=== PATIENT | female | born 1995 | race Caucasian/White ===

== ENCOUNTER 2017-09-07 21:21 | Outpatient (CLI) | payer OTHER ==
[~2017-09-07] VITALS: Ht 152.4 cm; Wt 73.8 kg
[~2017-09-07 21:21] MED LIST: FERR240T9 PO; FOLI0.8C PO; PREN1TAB79 PO
[2017-09-07] MEDS ORDERED: LACTATED RINGER'S 1,000 ML IV SCH (21:34)
[2017-09-07] MEDS ORDERED: ONDANSETRON 4 MG INJ IV STA (21:34)
[2017-09-07 21:36] VITALS: Ht 152.4 cm; Wt 73.8 kg
[2017-09-07] MEDS ORDERED: ONDANSETRON 4 MG INJ ONE (21:45)
[2017-09-07 22:27] LABS: BASOPHILS % 0.2 % (0.0-2.0); EOSINOPHILS # 0.2 10^3/ul (0.0-0.5); HEMATOCRIT 34.9 % (37.0-47.0); HEMOGLOBIN 11.4 g/dl (12.0-16.0); MEAN CORPUSCULAR HEMOGLOBIN 28.9 pg (29.0-33.0); MEAN CORPUSCULAR HGB CONC 32.7 g/dl (32.0-37.0); MEAN CORPUSCULAR VOLUME 88.4 fl (82.0-101.0); MEAN PLATELET VOLUME 9.8 fl (7.4-10.4); MONOCYTE # 0.6 10^3/ul (0.3-0.9); MONOCYTES % 5.2 % (0.0-11.0); NEUTROPHIL # 6.6 10^3/ul (1.6-7.5); NEUTROPHILS % 63.2 % (39.0-77.0); PLATELET COUNT 369 10^3/UL (140-415); RED BLOOD COUNT 3.95 10^6/ul (4.20-5.40); RED CELL DISTRIBUTION WIDTH 13.9 % (11.5-14.5); WHITE BLOOD COUNT 10.5 10^3/ul (4.8-10.8)
[2017-09-07 22:32] LABS: ADD UMIC NO; UR ASCORBIC ACID NEGATIVE (NEGATIVE); UR BACTERIA FEW /HPF (NONE SEEN); UR BILIRUBIN (Dip) NEGATIVE (NEGATIVE); UR BLOOD (Dip) NEGATIVE (NEGATIVE); UR CLARITY SLIGHTLY CLOUDY (CLEAR); UR COLOR YELLOW (YELLOW); UR GLUCOSE (Dip) NEGATIVE (NEGATIVE); UR KETONES (Dip) NEGATIVE (NEGATIVE); UR LEUKOCYTE ESTERASE (Dip) NEGATIVE Leu/ul (NEGATIVE); UR NITRITE (Dip) NEGATIVE (NEGATIVE); UR RBC 1 /HPF (0-5); UR SQUAMOUS EPITHELIAL CELL FEW /HPF (FEW); UR TOTAL PROTEIN (Dip) NEGATIVE (NEGATIVE); UR UROBILINOGEN (Dip) NEGATIVE (NEGATIVE)
[2017-09-07 22:45] LABS: ALBUMIN 3.3 g/dl (3.3-4.9); ALBUMIN/GLOBULIN RATIO 0.97; CALCIUM 8.4 mg/dl (8.4-10.2); CREATININE 0.51 mg/dl (0.44-1.00); POTASSIUM 3.8 mmol/L (3.5-5.1); TOTAL PROTEIN 6.7 g/dl (6.1-8.1)
--- NOTE | 2017-09-08 00:02 | PN ---
Triage Information Date/Time September 07, 2017. Reason for visit: Nausea/vomiting/diarrhea Weeks of Gestation 21w /Para 3/2 Diabetes: none Hypertention: none Additional information Pt had sx's for 3 hours prior to admission. Denies fevers/chills. Pt was in [facility] and just returned so has not had care yet. POBHx: x 1. x 1. PMHx: none. PSHx: x 1. Objective BP 96/59 T= 98.1 Heart Rate: 150's Contractions: None Exam Deferred. Results/Medications Result Diagram: 09/07/17214909/[id number]/172149 Results 24 hrs Laboratory Tests Test 09/07/17 21:05 09/07/17 21:50 Urine Color YELLOW Urine Clarity SLIGHTLY CLOUDY A Urine pH 5.0 Urine Specific [place] 1.010 Urine Ketones NEGATIVE Urine Nitrite NEGATIVE Urine Bilirubin NEGATIVE Urine Urobilinogen NEGATIVE Urine Leukocyte Esterase NEGATIVE Urine Microscopic RBC 1 Urine Microscopic WBC 3 Urine Squamous Epithelial Cells FEW Urine Bacteria FEW A Urine Hemoglobin NEGATIVE Urine Glucose NEGATIVE Urine Total Protein NEGATIVE White Blood Count 10.5 # Red Blood Count 3.95 L Hemoglobin 11.4 L Hematocrit 34.9 L Mean Corpuscular Volume 88.4 Mean Corpuscular Hemoglobin 28.9 L Mean Corpuscular Hemoglobin Concent 32.7 Red Cell Distribution Width 13.9 Platelet Count 369 Mean Platelet Volume 9.8 Neutrophils % 63.2 Lymphocytes % 29.0 Monocytes % 5.2 Eosinophils % 2.0 Basophils % 0.2 Nucleated Red Blood Cells % 0.0 Neutrophils # 6.6 Lymphocytes # 3.0 H Monocytes # 0.6 Eosinophils # 0.2 Basophils # 0.0 Nucleated Red Blood Cells # 0.0 Sodium Level 137 Potassium Level 3.8 Chloride Level 109 Carbon Dioxide Level 19 L Anion Gap 13 Blood Urea Nitrogen 10 Creatinine 0.51 Glucose Level 96 Calcium Level 8.4 Total Bilirubin 0.0 L Direct Bilirubin 0.00 Indirect Bilirubin 0.0 Aspartate Amino Transf (AST/SGOT) 14 L Alanine Aminotransferase (ALT/SGPT) 24 Alkaline Phosphatase 116 Total Protein 6.7 Albumin 3.3 Globulin 3.40 H Albumin/Globulin Ratio 0.97 Medications Current Medications Lactated Ringer's (Lr) 1,000 ml @ 125 mls/hr Q8H IV Last administered on 09/07t 22:08; Admin Dose 125 MLS/HR; Start 09/07/17 at 21:34 Disposition: Discharge Assessment/Plan A: IUP at 21 weeks. GI distress. P: After IV hydration and one dose of Zofran the pt had no vomiting or diarrhea the entire 3 hours that she was here and reports feeling much better. All labs were normal. Pt encouraged to seek PNC as soon as possible. Pt d/c'ed home. VERN HAWKINS MD Sep 08, 2017 00:02
--- NOTE | 2017-09-08 00:25 | TRIAGE ---
OB Triage Datetime Report Generated by CPN: 09/08/2017 00:24 Datetime: 09/08/2017 00:02 Stage of : OB Triage Datetime: 09/07/2017 23:55 Heart Rate FHR Baseline Rate: 150 Datetime: 09/07/2017 23:00 Labor Evaluation Frequency: 0 Duration (sec)2399: 0 Datetime: 09/07/2017 22:32 Pain Assessment Pain Scale: 0 Pain Assessment Comments: PT. STATES SHE IS NO LONGER HAVING CRAMPING PAIN OR URGE FOR DIARRHEA, N AUSEA OR VOMITING Datetime: 09/07/2017 21:43 Heart Rate FHR Baseline Rate: 155 FHR Baseline Changes: No Baseline Change Comments: FHT OBTAINED ONLY D/T GA Datetime: 09/07/2017 21:40 Monitor Mode: External Contraction Comments: TOCO PLACED SLIGHTLY BELOW UMBILICUS Monitor Mode: External US Datetime: 09/07/2017 21:29 Stage of : OB Triage Assessment Type: Triage Time of Arrival: 09/07/2017 21:11 EGA: 21.3 Arrived By: Wheelchair Arrived From: Home Chief Complaint: N/V AND DIARRHEA X5 Rupture of Membranes: Denies Vaginal Bleeding: None Vaginal Discharge: Denies Recent Sexual Intercouse: Denies Abdominal Trauma: Not Applicable Patient Complaints: Cramping; Nausea; Vomiting; Other Time Provider Notified: 09/07/2017 21:27 Provider Notified: REICHE Initial Plan: DOPPLER, CALL OB Maternal Assessment Level of Consciousness: Fully Conscious Headache: Denies Blurred Vision: No Respiratory Effort: Unlabored; Regular Rhythm; Equal Expansion Nausea/Vomiting: Denies RUQ Epigastric Pain: Denies Facial Edema: None Fall Risk Assessment History of Falling: (0) No Secondary Diagnosis: (0) No Ambulatory Aid: (0) Bedrest/Nurse Assist IV Therapy: (0) No Gait: (0) Normal/Bedrest/Immobile Mental Status: (0) Oriented to Own Ability Fall Score: 0 Fall Risk Score Definition: No Risk: No action required Datetime: 09/07/2017 21:27 Stage of : OB Triage
== END 2017-09-08 00:24 | disposition home or self-care (01) ==
LOC: OBT 21:21 → L-D 21:21 → OBT 09-08 00:24
PROVIDERS: ATTEND Obstetrics & Gynecology
DX: O26.892 Other specified pregnancy related conditions, second trimester (principal); R11.2 Nausea with vomiting, unspecified; Z3A.21 21 weeks gestation of pregnancy; R19.7 Diarrhea, unspecified
CPT/HCPCS: 36415; 80053; 81001; 85025; 96360; 96375; J2405; J7120; Z7500; 81003; G0463

== ENCOUNTER 2017-10-02 14:35 | Outpatient (CLI) | payer OTHER ==
[~2017-10-02] VITALS: Ht 157.5 cm; Wt 76.2 kg
[2017-10-02 15:17] VITALS: Ht 157.5 cm; Wt 76.2 kg
[2017-10-02 15:18] VITALS: BP 96/55; PULSE 78; RESP 18
[2017-10-02 16:25] LABS: ADD UMIC NO; UR ASCORBIC ACID NEGATIVE (NEGATIVE); UR BACTERIA FEW /HPF (NONE SEEN); UR BILIRUBIN (Dip) NEGATIVE (NEGATIVE); UR BLOOD (Dip) NEGATIVE (NEGATIVE); UR CLARITY SLIGHTLY CLOUDY (CLEAR); UR COLOR YELLOW (YELLOW); UR GLUCOSE (Dip) NEGATIVE (NEGATIVE); UR KETONES (Dip) NEGATIVE (NEGATIVE); UR LEUKOCYTE ESTERASE (Dip) NEGATIVE Leu/ul (NEGATIVE); UR NITRITE (Dip) NEGATIVE (NEGATIVE); UR RBC 1 /HPF (0-5); UR SPECIFIC GRAVITY (Dip) 1.017 (1.003-1.030); UR SQUAMOUS EPITHELIAL CELL FEW /HPF (FEW); UR TOTAL PROTEIN (Dip) NEGATIVE (NEGATIVE); UR UROBILINOGEN (Dip) NEGATIVE (NEGATIVE)
--- NOTE | 2017-10-02 17:08 | RADRPT ---
PROCEDURE: OB ultrasound for biophysical profile CLINICAL INDICATION: Biophysical profile. TECHNIQUE: Multiple sonographic images of the pelvis were obtained. Transabdominal view of the gr avid uterus are available for review. The images were reviewed on a PACS workstation. COMPARISON: None FINDINGS: breathing movement = 2/2 tone = 2/2 motion = 2/2 Quantitative amniotic fluid volume = 2/2 JENNA = 14.0 cm Single live intrauterine with cardiac activity at 150 beats per minute. There is a fundal placenta without previa or abruption. Cervix is closed and measures 4.6 cm in length. IMPRESSION: 1. Single living intrauterine gestation in breech position. 2. Biophysical profile = 8/8. 3. JENNA = 14.0 cm. RPTAT: AACC Physician Dafne Date Time Electronically viewed and signed by Physician Dafne on 10/02/2017 17:07 /
[2017-10-02 19:35] LABS: BASOPHILS % 0.4 % (0.0-2.0); EOSINOPHILS # 0.1 10^3/ul (0.0-0.5); EOSINOPHILS % 0.6 % (0.0-7.0); HEMATOCRIT 34.3 % (37.0-47.0); HEMOGLOBIN 11.3 g/dl (12.0-16.0); LYMPHOCYTES # 2.6 10^3/ul (0.8-2.9); LYMPHOCYTES % 28.1 % (15.0-51.0); MEAN CORPUSCULAR HEMOGLOBIN 28.7 pg (29.0-33.0); MEAN CORPUSCULAR HGB CONC 32.9 g/dl (32.0-37.0); MEAN CORPUSCULAR VOLUME 87.1 fl (82.0-101.0); MEAN PLATELET VOLUME 9.6 fl (7.4-10.4); MONOCYTE # 0.4 10^3/ul (0.3-0.9); MONOCYTES % 4.2 % (0.0-11.0); NEUTROPHIL # 6.2 10^3/ul (1.6-7.5); NEUTROPHILS % 66.4 % (39.0-77.0); PLATELET COUNT 384 10^3/UL (140-415); RED BLOOD COUNT 3.94 10^6/ul (4.20-5.40); RED CELL DISTRIBUTION WIDTH 13.4 % (11.5-14.5); WHITE BLOOD COUNT 9.3 10^3/ul (4.8-10.8)
[2017-10-02] MEDS ORDERED: TERBUTALINE 1 MG/ML INJ SC ONE (21:00)
--- NOTE | 2017-10-03 00:10 | PN ---
Triage Information Date/Time 10/02/17 1209 Reason for visit: Uterine contractions Weeks of Gestation 31w1d /Para Diabetes: none Hypertention: none Additional information x1 X1 c/s Objective Vital Signs Date Time Temp Pulse Resp B/P Pulse Ox O2 Delivery O2 Flow Rate FiO2 10/02/17 15:18 98.3 78 18 96/55 Results/Medications Result Diagram: 10/02/17 1908 Results 24 hrs Laboratory Tests Test 10/02/17 15:20 10/02/17 19:05 Urine Color YELLOW Urine Clarity SLIGHTLY CLOUDY A Urine pH 6.0 Urine Specific [place] 1.017 Urine Ketones NEGATIVE Urine Nitrite NEGATIVE Urine Bilirubin NEGATIVE Urine Urobilinogen NEGATIVE Urine Leukocyte Esterase NEGATIVE Urine Microscopic RBC 1 Urine Microscopic WBC 1 Urine Squamous Epithelial Cells FEW Urine Bacteria FEW A Urine Hemoglobin NEGATIVE Urine Glucose NEGATIVE Urine Total Protein NEGATIVE White Blood Count 9.3 Red Blood Count 3.94 L Hemoglobin 11.3 L Hematocrit 34.3 L Mean Corpuscular Volume 87.1 Mean Corpuscular Hemoglobin 28.7 L Mean Corpuscular Hemoglobin Concent 32.9 Red Cell Distribution Width 13.4 Platelet Count 384 Mean Platelet Volume 9.6 Neutrophils % 66.4 Lymphocytes % 28.1 Monocytes % 4.2 Eosinophils % 0.6 Basophils % 0.4 Nucleated Red Blood Cells % 0.0 Neutrophils # 6.2 Lymphocytes # 2.6 Monocytes # 0.4 Eosinophils # 0.1 Basophils # 0.0 Nucleated Red Blood Cells # 0.0 Medications terbtaline Imaging Results bpp8/8 cvl 4.6 ramy 14 Disposition: Discharge Assessment/Plan IUP 31w1d uc's resolved with oral fluid and restx1 terbutaline plan d/s home f/u with PNC BECCA PARSON MD Oct 03, 2017 00:10
--- NOTE | 2017-10-03 06:54 | RADRPT ---
PROCEDURE: US Abdomen limited. CLINICAL INDICATION: Abdominal pain TECHNIQUE: Multiple real-time images were acquired of the patient's right lower quadrant utilizing a high resolution transducer. COMPARISON: None FINDINGS: The appendix is not visualized. No free fluid is identified. No pain was elicited with compression or release of the ultrasound prob e. IMPRESSION: No ultrasound evidence of appendicitis. If there is a high clinical suspicion for appendicitis, cross-sectional imaging is recommended. RPTAT: HJES .Ricci Conti MD, MD Date Time Electronically viewed and signed by .Ricci Conti MD, on 10/02/2017 18:38 .S/
--- NOTE | 2017-10-03 06:54 | TRIAGE ---
OB Triage Datetime Report Generated by CPN: 10/03/2017 05:38 Datetime: 10/02/2017 18:12 Labor Evaluation Frequency: 0 Monitor Mode: External Resting Tone [place]: Relaxed Heart Rate FHR Baseline Rate: 155 Monitor Mode: External US Variability: Moderate 6-25 bpm Decelerations: None Category: Category I Pain Assessment Pain Scale: 4 Pain Presence: Intermittent Pain Type: Cramping Pain Location: Perineum Pain Goal: 3 Pain Relief Measures: Comfort Measures Datetime: 10/02/2017 18:04 Stage of : OB Triage Datetime: 10/02/2017 17:11 Labor Evaluation Frequency: 0 Monitor Mode: External Pattern: Normal: <= 5 Contractions in 10 Minutes Resting Tone [place]: Relaxed Heart Rate FHR Baseline Rate: 155 Monitor Mode: External US Variability: Moderate 6-25 bpm Accelerations: 10X10 Decelerations: None Category: Category I Pain Assessment Pain Scale: 4 Pain Presence: Intermittent Pain Type: Cramping Pain Location: Perineum Pain Goal: 3 Pain Relief Measures: Comfort Measures Datetime: 10/02/2017 16:15 Stage of : OB Triage Datetime: 10/02/2017 16:11 Labor Evaluation Frequency: 0 Monitor Mode: External Resting Tone [place]: Relaxed Heart Rate FHR Baseline Rate: 155 Monitor Mode: External US Variability: Moderate 6-25 bpm Accelerations: 10X10 Decelerations: None Category: Category I Pain Assessment Pain Scale: 4 Pain Presence: Intermittent Pain Type: Cramping Pain Location: Perineum Pain Goal: 3 Pain Relief Measures: Comfort Measures Datetime: 10/02/2017 15:55 Stage of : OB Triage Datetime: 10/02/2017 15:09 Stage of : OB Triage Assessment Type: Triage Maternal Assessment Level of Consciousness: Fully Conscious DTR's/Clonus: DTRs 2+; No Clonus Headache: Denies Blurred Vision: No Respiratory Effort: Unlabored; Regular Rhythm; Equal Expansion Breath Sounds, Left: Clear and Equal Breath Sounds, Right: Clear and Equal Nausea/Vomiting: Denies RUQ Epigastric Pain: Denies Facial Edema: None Temperature Route: Axillary Fall Risk Assessment History of Falling: (0) No Secondary Diagnosis: (0) No Ambulatory Aid: (0) Bedrest/Nurse Assist IV Therapy: (0) No Gait: (0) Normal/Bedrest/Immobile Mental Status: (0) Oriented to Own Ability Fall Score: 0 Fall Risk Score Definition: No Risk: No action required Labor Evaluation Frequency: 0 Monitor Mode: External Quality: Mild Pattern: Normal: <= 5 Contractions in 10 Minutes Resting Tone [place]: Relaxed Heart Rate FHR Baseline Rate: 145 Monitor Mode: External US Variability: Moderate 6-25 bpm Accelerations: 10X10 Decelerations: None Category: Category I Pain Assessment Pain Scale: 4 Pain Presence: Intermittent Pain Type: Cramping Pain Location: Abdomen Pain Goal: 3 Pain Relief Measures: Comfort Measures Datetime: 10/02/2017 15:05 Time of Arrival: 10/02/2017 14:25 EGA: 31.0 Arrived By: Ambulatory Arrived From: Home Chief Complaint: C/O UC'S THAT STARTED YESTERDAY AT 1043 THAT OCCUR APPROX EVERY HOUR. DENIES BLEE DING OR LEAKING Movement: Present Contractions: Irregular Contractions: 40-60 Rupture of Membranes: Denies Vaginal Bleeding: None Vaginal Discharge: Denies Recent Sexual Intercouse: Denies Abdominal Trauma: Not Applicable Patient Complaints: Cramping Time Provider Notified: 10/02/2017 14:25 Initial Plan: MONITOR, U/A, CL, BPP Datetime: 09/07/2017 21:29 EGA: 27.3 Fall Score: 0 Fall Risk Score Definition: No Risk: No action required
== END 2017-10-02 22:30 | disposition home or self-care (01) ==
LOC: OBT 14:35 → L-D 14:35 → OBT 22:30
PROVIDERS: ATTEND Obstetrics & Gynecology
DX: O62.9 Abnormality of forces of labor, unspecified (principal); Z3A.31 31 weeks gestation of pregnancy
CPT/HCPCS: 76705; 76817; 76818; 81001; 81003; 85025; 96372; J3105; Z7500; G0463

== ENCOUNTER 2017-10-07 13:36 | Outpatient (CLI) | payer OTHER ==
[~2017-10-07] VITALS: Ht 157.5 cm; Wt 75.3 kg
[2017-10-07 14:00] VITALS: Ht 157.5 cm; Wt 75.3 kg
[2017-10-07 14:10] VITALS: BP 102/58; PULSE 84; RESP 20
[2017-10-07 15:05] LABS: ADD UMIC NO; UR ASCORBIC ACID NEGATIVE (NEGATIVE); UR BILIRUBIN (Dip) NEGATIVE (NEGATIVE); UR BLOOD (Dip) NEGATIVE (NEGATIVE); UR CLARITY CLEAR (CLEAR); UR COLOR YELLOW (YELLOW); UR GLUCOSE (Dip) NEGATIVE (NEGATIVE); UR KETONES (Dip) NEGATIVE (NEGATIVE); UR LEUKOCYTE ESTERASE (Dip) NEGATIVE Leu/ul (NEGATIVE); UR NITRITE (Dip) NEGATIVE (NEGATIVE); UR SPECIFIC GRAVITY (Dip) 1.021 (1.003-1.030); UR TOTAL PROTEIN (Dip) NEGATIVE (NEGATIVE); UR UROBILINOGEN (Dip) NEGATIVE (NEGATIVE)
--- NOTE | 2017-10-07 15:18 | RADRPT ---
PROCEDURE: Obstetrical ultrasound for biophysical profile CLINICAL INDICATION: Biophysical profile. . TECHNIQUE: Obstetrical ultrasound of the uterus for biophysical profile. Transabdominal views are obtained. COMPARISON: US PELVIS 10/02/2017 FINDINGS: Single intrauterine gestation. breathing movement = 2/2 tone = 2/2 motion = 2/2 JENNA = 2/2 JENNA = 11.6 cm heart rate: 154 beats per minute IMPRESSION: Single intrauterine gestation. Biophysical profile 06/03 RPTAT: AADD .Palomo Wilson MD, MD Date Time Electronically viewed and signed by .Palomo Wilson MD, on 10/07/2017 15:18 .B/
--- NOTE | 2017-10-07 15:24 | RADRPT ---
PROCEDURE: US OB. CLINICAL INDICATION: Leaking TECHNIQUE: Multiple sonographic images of the pelvis were obtained. The images were reviewed on a PACS workstation. COMPARISON: 10/02/2007 FINDINGS: There is a single viable intrauterine gestation. Cardiac activity is present with 154 beats per min [place]. There is a breech presentation. Measurements were made in order to determine age. The results are as follows: BPD =6.51 cm HC =24.32 cm AC =21.37 cm FL =5.20 cm. Estimated gestational age of approximately 26 weeks 4 days. The estimated date of delivery is 01/09/2018. The EFW = 960.29 g < 3% . The placenta is posterior fundal grade 1. There is no evidence for an abruption or placenta previa. There is a normal amount of amniotic fluid IMPRESSION: Single viable intrauterine gestation of approximately 26 weeks 4 days. The estimated date of delive ry is 01/09/2018 Breech position . .Balaji Willett MD, MD Date Time Electronically viewed and signed by .Balaji Willett MD, MD on 10/07/2017 15:23 .W/
--- NOTE | 2017-10-07 16:32 | RADRPT ---
PROCEDURE: US cervix CLINICAL INDICATION: labor TECHNIQUE: Limited OB ultrasound was performed to evaluate the cervix COMPARISON: No prior studies are available for comparison. FINDINGS: The cervix is closed and measures 4.43 cm. No funneling or dilatation is seen IMPRESSION: Cervix is closed and measures 4.43 cm in length RPTAT: HH .Balaji Willett MD, MD Date Time Electronically viewed and signed by .Balaji Willett MD, on 10/07/2017 16:32 .W/
--- NOTE | 2017-10-07 16:44 | PN ---
Triage Information Date/Time Reason for visit: SROM Weeks of Gestation 31+ /Para 3/2 Diabetes: none Objective Vital Signs Date Time Temp Pulse Resp B/P Pulse Ox O2 Delivery O2 Flow Rate FiO2 10/07/17 14:10 98.4 84 20 102/58 Heart Rate: 140's Contractions: None Results/Medications Results 24 hrs Laboratory Tests Test 10/07/17 14:35 Urine Color YELLOW Urine Clarity CLEAR Urine pH 5.0 Urine Specific [place] 1.021 Urine Ketones NEGATIVE Urine Nitrite NEGATIVE Urine Bilirubin NEGATIVE Urine Urobilinogen NEGATIVE Urine Leukocyte Esterase NEGATIVE Urine Hemoglobin NEGATIVE Urine Glucose NEGATIVE Urine Total Protein NEGATIVE Membranes Rupture NEGATIVE Disposition: Discharge Assessment/Plan ROM test neg CXL >4cm JENNA WNL --->discharged with precautions KAYLYN QUINONES M.D. Oct 07, 2017 16:44
--- NOTE | 2017-10-07 17:05 | TRIAGE ---
OB Triage Datetime Report Generated by CPN: 10/07/2017 17:05 Datetime: 10/07/2017 15:47 Stage of : OB Triage Labor Evaluation Frequency: NONE Monitor Mode: External Resting Tone [place]: Relaxed Heart Rate FHR Baseline Rate: 150 FHR Baseline Changes: No Baseline Change Variability: Moderate 6-25 bpm Accelerations: 15X15 Decelerations: None Category: Category I Pain Assessment Pain Scale: 0 Pain Presence: None/Denies Pain Goal: 3 Datetime: 10/07/2017 15:00 Assessment Type: Triage Maternal Assessment Level of Consciousness: Fully Conscious DTR's/Clonus: DTRs 2+; No Clonus Headache: Denies Blurred Vision: No Respiratory Effort: Unlabored; Regular Rhythm; Equal Expansion Breath Sounds, Left: Clear and Equal Breath Sounds, Right: Clear and Equal Nausea/Vomiting: Denies RUQ Epigastric Pain: Denies Lower Extremities Edema: None Degree: None Upper Extremities Edema: None Degree: None Facial Edema: None Fall Risk Assessment History of Falling: (0) No Secondary Diagnosis: (0) No Ambulatory Aid: (0) Bedrest/Nurse Assist IV Therapy: (0) No Gait: (0) Normal/Bedrest/Immobile Mental Status: (0) Oriented to Own Ability Fall Score: 0 Fall Risk Score Definition: No Risk: No action required Datetime: 10/07/2017 14:45 Stage of : Antepartum Labor Evaluation Frequency: NONE Monitor Mode: External Resting Tone [place]: Relaxed Heart Rate FHR Baseline Rate: 150 FHR Baseline Changes: No Baseline Change Variability: Moderate 6-25 bpm Accelerations: 10X10 Decelerations: None Category: Category I Pain Assessment Pain Scale: 0 Pain Presence: None/Denies Pain Goal: 3 Datetime: 10/07/2017 14:18 Time of Arrival: 10/07/2017 13:20 EGA: 31.5 Arrived By: Ambulatory Arrived From: Office Chief Complaint: LEAKING Movement: Present Contractions: Irregular Time Contractions Began: 10/07/2017 11:00 Rupture of Membranes: Ruptured Vaginal Bleeding: None Vaginal Discharge: Present Recent Sexual Intercouse: Denies Abdominal Trauma: Not Applicable Patient Complaints: Contractions Initial Plan: NST (Annotations: Data stored by CPN on behalf of user) Datetime: 10/02/2017 22:20 Stage of : OB Triage Heart Rate FHR Baseline Rate: 150 Monitor Mode: External US FHR Baseline Changes: No Baseline Change Variability: Moderate 6-25 bpm Accelerations: 15X15 Decelerations: None Category: Category I Pain Assessment Pain Scale: 2 Pain Presence: Intermittent Pain Type: Cramping Pain Location: Abdomen Datetime: 10/02/2017 20:35 Stage of : OB Triage Monitor Mode: External Quality: Mild Pattern: Normal: <= 5 Contractions in 10 Minutes Resting Tone [place]: Relaxed Heart Rate FHR Baseline Rate: 150 Monitor Mode: External US Variability: Moderate 6-25 bpm Accelerations: 15X15 Decelerations: None Category: Category I Pain Assessment Pain Scale: 7 Pain Presence: Intermittent Pain Type: Contraction Pain Location: Abdomen Datetime: 10/02/2017 19:28 Stage of : OB Triage Monitor Mode: External Quality: Mild Pattern: Normal: <= 5 Contractions in 10 Minutes Resting Tone [place]: Relaxed Heart Rate FHR Baseline Rate: 150 Monitor Mode: External US Variability: Moderate 6-25 bpm Accelerations: 15X15 Decelerations: None Category: Category I Pain Assessment Pain Scale: 7 Pain Presence: Intermittent Pain Type: Contraction Pain Location: Abdomen Datetime: 10/02/2017 15:09 Fall Score: 0 Fall Risk Score Definition: No Risk: No action required Datetime: 10/02/2017 15:05 EGA: 31.0 Datetime: 09/07/2017 21:29 EGA: 27.3 Fall Score: 0 Fall Risk Score Definition: No Risk: No action required
== END 2017-10-07 16:55 | disposition home or self-care (01) ==
LOC: L-D 13:36 → OBT 13:36
PROVIDERS: ATTEND Obstetrics & Gynecology
DX: O42.90 Premature rupture of membranes, unspecified as to length of time between rupture and onset of labor, unspecified weeks of gestation (principal); Z3A.31 31 weeks gestation of pregnancy
CPT/HCPCS: 76815; 76817; 76818; 81003; 84112; Z7500; G0463

== ENCOUNTER 2017-10-09 13:10 | Outpatient (CLI) | payer OTHER ==
[~2017-10-09] VITALS: Ht 157.5 cm; Wt 76.6 kg
[2017-10-09 13:28] VITALS: BP 102/64; PULSE 101; RESP 18
[2017-10-09 13:29] VITALS: Ht 157.5 cm; Wt 76.6 kg
--- NOTE | 2017-10-09 16:55 | RADRPT ---
PROCEDURE: US OB biophysical profile. CLINICAL INDICATION: Contractions TECHNIQUE: Multiple sonographic images of the pelvis were obtained. The images were reviewed on a PACS workstation. COMPARISON: None FINDINGS: There is a single live intrauterine , in breech presentation. A normal heart rate is identified measuring 156 beats per minute. The placenta is grade 1, located posteriorly. Maximum amn iotic vertical pocket measures 3.6 cm. Biophysical profile: movement 2/2 tone 2/2. breathing 2/2 JENNA 2/2 Total 06/03 IMPRESSION: 1. Biophysical profile score of 8/8. 2. Single live intrauterine in breech presentation with normal heart rate of 156 bpm . 3. Maximum amniotic vertical pocket measures 3.6 cm. RPTAT: AAPP Physician Shruthi Date Time Electronically viewed and signed by Physician Shruthi on 10/09/2017 14:15 DEJAN/
--- NOTE | 2017-10-09 17:25 | TRIAGE ---
OB Triage Datetime Report Generated by CPN: 10/09/2017 17:24 Datetime: 10/09/2017 15:55 Stage of : OB Triage Datetime: 10/09/2017 15:34 Labor Evaluation Frequency: 0 Monitor Mode: External Resting Tone [place]: Relaxed Heart Rate FHR Baseline Rate: 145 Monitor Mode: External US Variability: Moderate 6-25 bpm Accelerations: 10X10 Decelerations: None Category: Category I Pain Assessment Pain Scale: 0 Pain Presence: None/Denies Pain Type: N/A Pain Goal: 3 Pain Relief Measures: Comfort Measures Datetime: 10/09/2017 14:50 Stage of : Labor Labor Evaluation Frequency: none Pattern: Normal: <= 5 Contractions in 10 Minutes Heart Rate FHR Baseline Rate: 150 Monitor Mode: External US FHR Baseline Changes: No Baseline Change Variability: Moderate 6-25 bpm Accelerations: 15X15 Decelerations: None Category: Category I Pain Presence: None/Denies Vaginal Exam Membrane Status: Intact Datetime: 10/09/2017 14:30 Stage of : OB Triage Labor Evaluation Frequency: none Pattern: Normal: <= 5 Contractions in 10 Minutes Heart Rate FHR Baseline Rate: 155 Monitor Mode: External US FHR Baseline Changes: No Baseline Change Variability: Moderate 6-25 bpm Accelerations: 10X10 Decelerations: None Category: Category I Datetime: 10/09/2017 13:33 Stage of : OB Triage Maternal Assessment Level of Consciousness: Fully Conscious DTR's/Clonus: DTRs 2+; No Clonus Headache: Denies Blurred Vision: No Respiratory Effort: Unlabored; Regular Rhythm; Equal Expansion Breath Sounds, Left: Clear and Equal Breath Sounds, Right: Clear and Equal Nausea/Vomiting: Denies RUQ Epigastric Pain: Denies Lower Extremities Edema: None Degree: None Upper Extremities Edema: None Degree: None Facial Edema: None Temperature Route: Oral Fall Risk Assessment History of Falling: (0) No Secondary Diagnosis: (0) No Ambulatory Aid: (0) Bedrest/Nurse Assist IV Therapy: (0) No Gait: (0) Normal/Bedrest/Immobile Mental Status: (0) Oriented to Own Ability Fall Score: 0 Fall Risk Score Definition: No Risk: No action required Monitor Mode: External Heart Rate FHR Baseline Rate: 150 Monitor Mode: External US FHR Baseline Changes: initial Pain Assessment Pain Scale: 0 Datetime: 10/09/2017 13:31 Time of Arrival: 10/09/2017 13:31 EGA: 26.6 Arrived By: Ambulatory Arrived From: Home Chief Complaint: fllow up fro monitoring and u/s Movement: Present Contractions: Denies/Absent Rupture of Membranes: Denies Vaginal Bleeding: None Vaginal Discharge: Denies Recent Sexual Intercouse: Denies Abdominal Trauma: Not Applicable Patient Complaints: Other Time Provider Notified: 10/09/2017 13:56 Provider Notified: DR Cavanaugh Initial Plan: efm/ u/s, BPP Datetime: 10/09/2017 13:16 EGA: 26.4 Datetime: 10/09/2017 13:15 EGA: 26.4 Datetime: 10/07/2017 17:02 Time Provider Notified: 10/07/2017 14:00 Datetime: 10/07/2017 15:00 Fall Score: 0 Fall Risk Score Definition: No Risk: No action required Datetime: 10/07/2017 14:18 EGA: 31.5 Datetime: 10/02/2017 15:09 Fall Score: 0 Fall Risk Score Definition: No Risk: No action required Datetime: 10/02/2017 15:05 EGA: 31.0 Datetime: 09/07/2017 21:29 EGA: 27.3 Fall Score: 0 Fall Risk Score Definition: No Risk: No action required
--- NOTE | 2017-10-09 19:53 | CONS ---
Date/Time of Note Date/Time of Note DATE: 10/09/17 TIME: 19:47 Consultation Date/Type/Reason Admit Date/Time October 09, 2017 OB triage consult This patient is a 21 years old, 3 para 2 ,who had 1 spontaneous vaginal delivery and 1 section, she came to triage complaining of contractions since yesterday. On examination; the abdomen was soft, scattered contraction , heart tone was normal with fairly good variability, no decelerations On general physical examination, her blood pressure was 102/64, pulse rate 101, respiration 18 temperature 98, 0.0, Constitutional: No chills, No diaphoresis, No disoriented, No febrile, No improved, No no complaints, No other, No poor po, No requiring IVF, No requiring O2 Eyes: No discharge, No no complaints, No other, No pain, No redness, No visual change ENT: No bleeding, No congestion, No discharge, No dysphagia, No no complaints, No other, No pain, No sore throat Respiratory: No cough, No no complaints, No other, No pain, No pleuritic pain, No shortness of breath, No sputum, No wheezing Cardiovascular: No chest pain, No edema, No lightheadedness, No no complaints, No orthopenea, No other, No palpitations, No paroxysmal nocturnal dyspnea Gastrointestinal: No blood, No constipation, No decreased appetite, No diarrhea , No flatus, No nausea, No no complaints, No other, No pain, No passing stool, No vomiting Genitourinary: other (Due to lack of contractions pelvic examination was not performed), No bleeding, No discharge, No dysuria, No flank pain, No hematuria, No no complaints Musculoskeletal: No back pain, No bone/joint pain, No neck pain, No no complaints, No other, No restricted range of motion, No swelling Skin: No bruising, No erythema, No laceration, No no complaints, No other, No pruritis, No rash, No skin lesions Neurologic: No confusion, No dizziness, No focal-weakness, No headache, No no complaints, No other, No seizure, No syncope Endocrine: No dry skin, No no complaints, No other, No polydypsia, No polyuria , No temp intolerance Additional Comments On OB ultrasound ; the study report was;a single live intrauterine , in breech presentation with normal heart rate of 156 bpm placenta was grade 1 posterior location, and maximum amniotic vertical pocket measures 3.6 cm. Her biophysical profile was 8/8. 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
== END 2017-10-09 16:20 | disposition home or self-care (01) ==
LOC: OBT 13:10 → L-D 13:10 → OBT 16:20
PROVIDERS: ATTEND Obstetrics & Gynecology
DX: O62.9 Abnormality of forces of labor, unspecified (principal); Z3A.26 26 weeks gestation of pregnancy
CPT/HCPCS: 76818; Z7500; G0463

== ENCOUNTER 2017-11-01 21:00 | Outpatient (CLI) | END 2017-11-02 02:18 | disposition home or self-care (01) ==

== ENCOUNTER 2017-11-23 13:50 | Outpatient (CLI) | END 2017-11-23 16:38 | disposition home or self-care (01) ==

== ENCOUNTER 2017-12-08 21:45 | Inpatient (IN) | END 2017-12-12 19:04 | disposition home or self-care (01) | DRG 766 ==